=== PATIENT | male | born 1955 | race Caucasian/White ===

== ENCOUNTER 2016-08-28 13:17 | Emergency (ER) | payer OTHER ==
[~2016-08-28] VITALS: Ht 172.7 cm; Wt 80.4 kg
[2016-08-28 15:01] LABS: BASOPHIL % 0.7 % (0-2); PLATELET COUNT 244 x10^3mcL (130-400); RED CELL DISTRIBUTION WIDTH 13.7 % (11.5-14.5)
[2016-08-28 15:10] LABS: CALCIUM 8.7 mg/dL (8.5-10.1); CARBON DIOXIDE 25.8 mmol/L (21-32); CREATININE SERUM 1.9 mg/dL (0.7-1.3); POTASSIUM SERUM 4.6 mmol/L (3.5-5.1)
[2016-08-28 15:15] LABS: BILIRUBIN TOTAL 0.2 mg/dL (0.20-1.00); MAGNESIUM 2.1 mg/dL (1.8-2.4); TOTAL PROTEIN, SERUM 6.6 g/dL (6.4-8.2)
[2016-08-28 15:17] LABS: ALBUMIN 3.1 g/dL (3.4-5.0)
[2016-08-28 17:03] VITALS: BP 145/87
== END 2016-08-28 17:03 | disposition home or self-care (01) ==
LOC: ED 13:17
PROVIDERS: Emergency Medicine
DX: F07.81 Postconcussional syndrome (principal); R51 Headache; R42 Dizziness and giddiness; E11.22 Type 2 diabetes mellitus with diabetic chronic kidney disease; I12.9 Hypertensive chronic kidney disease with stage 1 through stage 4 chronic kidney disease, or unspecified chronic kidney disease; N18.9 Chronic kidney disease, unspecified; Z79.84 Long term (current) use of oral hypoglycemic drugs
CPT/HCPCS: J1200; J1885; J2765; J7030

== ENCOUNTER 2017-07-30 21:03 | Inpatient (IN) | payer OTHER ==
[~2017-07-30] VITALS: Ht 172.7 cm; Wt 82.0 kg
[2017-07-30 22:55] LABS: BASOPHIL % 0.7 % (0-2); PLATELET COUNT 236 x10^3mcL (130-400); RED CELL DISTRIBUTION WIDTH 12.4 % (11.5-14.5)
[2017-07-30 23:17] LABS: ALBUMIN 3.4 g/dL (3.4-5.0); BILIRUBIN TOTAL 0.19 mg/dL (0.20-1.00); CALCIUM 8.4 mg/dL (8.5-10.1); CARBON DIOXIDE 23.8 mmol/L (21-32); CREATININE SERUM 2.7 mg/dL (0.7-1.3); TOTAL PROTEIN, SERUM 6.7 g/dL (6.4-8.2)
[2017-07-30 23:27] LABS: POTASSIUM SERUM 5.8 mmol/L (3.5-5.1)
[2017-07-31] VITALS (7 sets, daily range): BP systolic 134–203; BP diastolic 56–95
[2017-07-31] MEDS ORDERED: BACTRIM DS1 TAB PO (00:13)
[2017-07-31] MEDS ORDERED: FERROUS SULFAT325 M2 PO (00:13)
[2017-07-31] MEDS ORDERED: KEFLEX500 M1 PO (00:13)
[2017-07-31] MEDS ORDERED: GLYBURIDE5 MG (03:19)
[2017-07-31] MEDS ORDERED: ATENOLOL25 MG PO (03:19)
[2017-07-31] MEDS ORDERED: METFORMIN500 M1 PO (03:19)
[2017-07-31] MEDS ORDERED: JANUVIA100 M1 PO (03:20)
[2017-07-31 03:43] LABS: UA SPECIFIC GRAVITY 1.015 (1.005-1.035); microscopic required? YES; urine erythrocyte TRACE (NEGATIVE)
[2017-07-31 04:01] LABS: T3 TOTAL 0.77 ng/mL
[2017-07-31 04:06] LABS: CHOLESTEROL/HDL RATIO 4.1; MAGNESIUM 1.8 mg/dL (1.8-2.4); PHOSPHOROUS 5.3 mg/dL (2.5-4.9)
[2017-07-31 04:10] LABS: FREE T4 0.94 ng/dL (0.76-1.46); FREE THYROXINE INDEX 2.2 ug/dL (1.4-4.5); T4(THYROXINE) 6.6 ug/dL (4.7-13.3)
[2017-07-31 04:11] LABS: AMPHETAMINE QUAL UR NONE DETECTED (NEG <=1000)
[2017-07-31 06:19] LABS: BASOPHIL % 0.7 % (0-2); PLATELET COUNT 236 x10^3mcL (130-400); RED CELL DISTRIBUTION WIDTH 12.9 % (11.5-14.5)
[2017-07-31 06:24] LABS: CARBON DIOXIDE 19.9 mmol/L (21-32); CREATININE SERUM 2.6 mg/dL (0.7-1.3); POTASSIUM SERUM 5.3 mmol/L (3.5-5.1)
[2017-07-31 12:33] LABS: CALCIUM 8.4 mg/dL (8.5-10.1); CARBON DIOXIDE 23.1 mmol/L (21-32); CREATININE SERUM 2.4 mg/dL (0.7-1.3); POTASSIUM SERUM 4.7 mmol/L (3.5-5.1)
[2017-08-01 06:01] VITALS: BP 130/65
[2017-08-01 07:03] LABS: BASOPHIL % 0.9 % (0-2); PLATELET COUNT 256 x10^3mcL (130-400)
[2017-08-01 07:16] LABS: CALCIUM 8.1 mg/dL (8.5-10.1); CARBON DIOXIDE 21.6 mmol/L (21-32); CREATININE SERUM 2.6 mg/dL (0.7-1.3); MAGNESIUM 1.8 mg/dL (1.8-2.4); PHOSPHOROUS 4.7 mg/dL (2.5-4.9); POTASSIUM SERUM 4.6 mmol/L (3.5-5.1)
[2017-08-01 07:58] VITALS: BP 172/75
[2017-08-01 12:43] VITALS: BP 140/68
[2017-08-01 16:04] VITALS: Ht 172.7 cm; Wt 82.0 kg
[2017-08-01 16:17] VITALS: BP 158/62
[2017-08-01] MEDS ORDERED: HIB240 TD (17:03)
[2017-08-01] MEDS ORDERED: BACOO OS (17:03)
[2017-08-01] MEDS ORDERED: LEVAQUIN500 M1 PO (17:06)
[2017-08-01] MEDS ORDERED: LAC PO (17:06)
[2017-08-01] MEDS ORDERED: TEN25 PO (17:11)
[2017-08-01] MEDS ORDERED: NOR5 PO (17:11)
[2017-08-01] MEDS ORDERED: BACTROBAN21 (17:40)
[2017-08-01 17:46] VITALS: BP 158/62
== END 2017-08-01 19:16 | disposition home or self-care (01) | DRG 380 ==
LOC: ED 21:03 → DU 07-31 00:15
PROVIDERS: Emergency Medicine; Family Medicine
PROC: 0JBQ0ZZ Excision of Right Foot Subcutaneous Tissue and Fascia, Open Approach (ICD-10-PCS; principal; 2017-07-31)
DX: E11.622 Type 2 diabetes mellitus with other skin ulcer (principal); L89.893 Pressure ulcer of other site, stage 3; N17.0 Acute kidney failure with tubular necrosis; E11.21 Type 2 diabetes mellitus with diabetic nephropathy; E87.5 Hyperkalemia; E11.42 Type 2 diabetes mellitus with diabetic polyneuropathy; B35.1 Tinea unguium; L03.115 Cellulitis of right lower limb; E11.22 Type 2 diabetes mellitus with diabetic chronic kidney disease; N18.4 Chronic kidney disease, stage 4 (severe); I12.9 Hypertensive chronic kidney disease with stage 1 through stage 4 chronic kidney disease, or unspecified chronic kidney disease; E83.39 Other disorders of phosphorus metabolism; T37.0X5A Adverse effect of sulfonamides, initial encounter; E11.65 Type 2 diabetes mellitus with hyperglycemia; L98.499 Non-pressure chronic ulcer of skin of other sites with unspecified severity; G90.8 Other disorders of autonomic nervous system; I16.0 Hypertensive urgency; L84 Corns and callosities; Y92.89 Other specified places as the place of occurrence of the external cause
CPT/HCPCS: 82962; 83880; 84439; 97535-GP; J1644; J1815; J2543; J3490; J7030; Q0092

== ENCOUNTER 2017-08-03 09:02 | Emergency (ER) | payer OTHER ==
[~2017-08-03] VITALS: Ht 172.7 cm; Wt 81.6 kg
[~2017-08-03 09:02] MED LIST: ATENOLOL25 MG PO; BACOO OS; BACTRIM DS1 TAB PO; BACTROBAN21; FERROUS SULFAT325 M2 PO; GLYBURIDE5 MG; HIB240 TD; JANUVIA100 M1 PO; KEFLEX500 M1 PO; LAC PO; LEVAQUIN500 M1 PO; METFORMIN500 M1 PO; NOR5 PO; TEN25 PO
[2017-08-03 09:07] VITALS: Ht 172.7 cm; Wt 81.6 kg
[2017-08-03 10:01] LABS: CALCIUM 8.7 mg/dL (8.5-10.1); CARBON DIOXIDE 22.2 mmol/L (21-32); CREATININE SERUM 2.5 mg/dL (0.7-1.3); POTASSIUM SERUM 4.4 mmol/L (3.5-5.1)
[2017-08-03 10:11] LABS: BASOPHIL % 0.7 % (0-2); PLATELET COUNT 254 x10^3mcL (130-400); RED CELL DISTRIBUTION WIDTH 12.6 % (11.5-14.5)
[2017-08-03 10:44] VITALS: BP 179/98
== END 2017-08-03 10:44 | disposition home or self-care (01) ==
LOC: ED 09:02
PROVIDERS: Emergency Medicine
DX: L97.519 Non-pressure chronic ulcer of other part of right foot with unspecified severity (principal); L03.031 Cellulitis of right toe; E11.621 Type 2 diabetes mellitus with foot ulcer; I12.9 Hypertensive chronic kidney disease with stage 1 through stage 4 chronic kidney disease, or unspecified chronic kidney disease; N18.9 Chronic kidney disease, unspecified
CPT/HCPCS: J0690; Q0092

== ENCOUNTER 2017-08-19 16:17 | Emergency (ER) | payer OTHER ==
[~2017-08-19] VITALS: Ht 177.8 cm; Wt 82.1 kg
[2017-08-19 16:23] VITALS: Ht 177.8 cm; Wt 82.1 kg
[2017-08-19 17:14] LABS: BASOPHIL % 0.1 % (0-2); PLATELET COUNT 193 x10^3mcL (130-400); RED CELL DISTRIBUTION WIDTH 13.1 % (11.5-14.5)
[2017-08-19 17:21] LABS: CARBON DIOXIDE 20.8 mmol/L (21-32); CREATININE SERUM 2.9 mg/dL (0.7-1.3); POTASSIUM SERUM 4.5 mmol/L (3.5-5.1)
[2017-08-19 17:27] LABS: ALBUMIN 3.5 g/dL (3.4-5.0); BILIRUBIN TOTAL 0.3 mg/dL (0.20-1.00); CHOLESTEROL/HDL RATIO 3.1; TOTAL PROTEIN, SERUM 6.7 g/dL (6.4-8.2)
[2017-08-19 17:42] LABS: T3 TOTAL 0.68 ng/mL
[2017-08-19 18:01] VITALS: BP 164/91
[2017-08-19 18:04] LABS: FREE T4 1.1 ng/dL (0.76-1.46); FREE THYROXINE INDEX 2.5 ug/dL (1.4-4.5); T4(THYROXINE) 7.3 ug/dL (4.7-13.3)
== END 2017-08-19 18:01 | disposition left against medical advice (07) ==
LOC: ED 16:17
PROVIDERS: Specialist
DX: R07.89 Other chest pain (principal); D63.8 Anemia in other chronic diseases classified elsewhere; I12.9 Hypertensive chronic kidney disease with stage 1 through stage 4 chronic kidney disease, or unspecified chronic kidney disease; E11.22 Type 2 diabetes mellitus with diabetic chronic kidney disease; N18.9 Chronic kidney disease, unspecified
CPT/HCPCS: 83880; 84439; J7030

== ENCOUNTER 2017-12-25 14:09 | Emergency (ER) | payer OTHER ==
[2017-12-25 14:22] VITALS: Ht 172.7 cm
[2017-12-25 15:19] LABS: BASOPHIL % 0.5 % (0-2); PLATELET COUNT 223 x10^3mcL (130-400); RED CELL DISTRIBUTION WIDTH 13.2 % (11.5-14.5)
[2017-12-25 15:35] LABS: FREE T4 1.04 ng/dL (0.76-1.46); T4(THYROXINE) 5.9 ug/dL (4.7-13.3)
[2017-12-25 15:46] LABS: T3 TOTAL 0.6 ng/mL
[2017-12-25 15:55] LABS: CARBON DIOXIDE 23.7 mmol/L (21-32); CREATININE SERUM 2.8 mg/dL (0.7-1.3); POTASSIUM SERUM 4.8 mmol/L (3.5-5.1)
[2017-12-25 15:59] LABS: BILIRUBIN TOTAL 0.25 mg/dL (0.20-1.00); TOTAL PROTEIN, SERUM 7.1 g/dL (6.4-8.2)
[2017-12-25 16:05] LABS: ALBUMIN 3.3 g/dL (3.4-5.0); CHOLESTEROL/HDL RATIO 4.5
[2017-12-25 17:01] LABS: UA SPECIFIC GRAVITY 1.015 (1.005-1.035); microscopic required? YES; urine erythrocyte 1+ (NEGATIVE)
[2017-12-25 17:20] VITALS: BP 170/80
== END 2017-12-25 17:20 | disposition home or self-care (01) ==
LOC: ED 14:09
PROVIDERS: Specialist
DX: R53.1 Weakness (principal); D64.9 Anemia, unspecified; E11.22 Type 2 diabetes mellitus with diabetic chronic kidney disease; I12.9 Hypertensive chronic kidney disease with stage 1 through stage 4 chronic kidney disease, or unspecified chronic kidney disease; N18.9 Chronic kidney disease, unspecified
CPT/HCPCS: 83880; 84439; J7040; Q0092

== ENCOUNTER 2018-02-09 18:52 | Emergency (ER) | payer OTHER ==
[~2018-02-09] VITALS: Ht 172.7 cm; Wt 84.8 kg
[2018-02-09 19:15] VITALS: Ht 172.7 cm; Wt 84.8 kg
[2018-02-09 19:35] VITALS: BP 170/73
== END 2018-02-09 19:35 | disposition home or self-care (01) ==
LOC: ED 18:52
DX: Z48.01 Encounter for change or removal of surgical wound dressing (principal); I10 Essential (primary) hypertension; E11.9 Type 2 diabetes mellitus without complications; E11.22 Type 2 diabetes mellitus with diabetic chronic kidney disease; Z86.2 Personal history of diseases of the blood and blood-forming organs and certain disorders involving the immune mechanism

== ENCOUNTER 2019-02-26 11:50 | Emergency (ER) | payer OTHER ==
[~2019-02-26] VITALS: Ht 172.7 cm; Wt 85.7 kg
[2019-02-26 16:04] VITALS: BP 220/98
== END 2019-02-26 16:10 | disposition home or self-care (01) ==
LOC: ED 11:50
DX: T17.228A Food in pharynx causing other injury, initial encounter (principal); E11.22 Type 2 diabetes mellitus with diabetic chronic kidney disease; I12.9 Hypertensive chronic kidney disease with stage 1 through stage 4 chronic kidney disease, or unspecified chronic kidney disease; N18.9 Chronic kidney disease, unspecified; E78.5 Hyperlipidemia, unspecified; Z98.890 Other specified postprocedural states; Z86.2 Personal history of diseases of the blood and blood-forming organs and certain disorders involving the immune mechanism; W45.8XXA Other foreign body or object entering through skin, initial encounter; Y93.89 Activity, other specified; Y92.511 Restaurant or cafe as the place of occurrence of the external cause; Y99.8 Other external cause status
CPT/HCPCS: 82962; J1610; Q0162

== ENCOUNTER 2020-04-13 14:27 | Emergency (ER) | payer OTHER ==
[~2020-04-13] VITALS: Ht 172.7 cm; Wt 83.5 kg
[2020-04-13 14:41] VITALS: Ht 172.7 cm; Wt 83.5 kg
[2020-04-13 17:23] VITALS: BP 173/83
== END 2020-04-13 15:05 | disposition home or self-care (01) ==
LOC: ED 14:27
DX: E11.65 Type 2 diabetes mellitus with hyperglycemia (principal); I10 Essential (primary) hypertension